=== PATIENT | female | born 1950 | race Caucasian/White ===

== ENCOUNTER 2018-01-23 18:02 | Emergency (ER) | payer BC ==
[2018-01-23 18:14] VITALS: BP 150/69
--- NOTE | 2018-01-23 19:02 | UC ---
Respiratory Complaint HPI - HPI Summary HPI Summary: 67 yo female has felt out of sorts the past day or two recently traveled from [place] felt marked fatigue shakey anxious and dyspneic briefly yesterday feel weak and dizzy DM type I - History of Current Complaint Chief Complaint: UCGeneralIllness Stated Complaint: COUGH Time Seen by Provider: 01/23/18 18:24 Hx Obtained From: Patient Onset/Duration: Gradual Onset, Lasting Days Timing: Constant Severity Initially: Mild Severity Currently: Moderate Pain Intensity: 0 Pain Scale Used: 0-10 Numeric Aggravating Factors: Nothing Associated Signs And Symptoms: Positive: Dyspnea - sllight yesterday - Allergies/Home Medications Allergies/Adverse Reactions: Allergies Allergy/AdvReac Type Severity Reaction Status Date / Time acetaminophen [From Vicodin] Allergy Altered Verified 01/23/18 18:15 Mental Status hydrocodone [From Vicodin] Allergy Altered Verified 01/23/18 18:15 Mental Status morphine Allergy Hives Verified 01/23/18 18:15 Home Medications: Home Medications Escitalopram (NF) [Lexapro 10 mg (NF)] 10 mg PO DAILY 01/23/18 [History Confirmed 01/23/18] PMH/Surg Hx/FS Hx/Imm Hx Endocrine History: Diabetes - Surgical History Surgical History: Yes Surgery Procedure, Year, and Place: FEMUR FX RIGHT LEG, 2010, [facility]. TODD CARPAL TUNELL, ,. L3-4 LAMINECTOMY, [facility]. TUBAL LIGATION, - Family History Known Family History: Positive: Hypertension - Social History Alcohol Use: Occasionally Substance Use Type: None Smoking Status (MU): Never Smoked Tobacco Review of Systems Constitutional: Fatigue Skin: Negative Eyes: Negative ENT: Negative Respiratory: Shortness Of Breath Cardiovascular: Negative Gastrointestinal: Negative Genitourinary: Negative Motor: Negative Neurovascular: Negative Musculoskeletal: Negative Neurological: Negative Psychological: Anxious Is Patient Immunocompromised?: No All Other Systems Reviewed And Are Negative: Yes Physical Exam Triage Information Reviewed: Yes Appearance: Well-Appearing, No Pain Distress, Well-Nourished Vital Signs: Initial Vital Signs Temp 98.8 F 01/23/18 18:08 Pulse 61 01/23/18 18:08 Resp 18 01/23/18 18:08 BP 150/69 01/23/18 18:08 Pulse Ox 100 01/23/18 18:08 Eyes: Positive: Conjunctiva Clear ENT: Positive: Hearing grossly normal. Negative: Nasal congestion, Nasal drainage, Trismus, Muffled voice, Hoarse voice Neck: Positive: Supple, Nontender Respiratory: Positive: Lungs clear, Normal breath sounds, No respiratory distress, No accessory muscle use Cardiovascular: Positive: RRR, No Murmur Musculoskeletal: Positive: ROM Intact, No Edema Neurological: Positive: Alert Psychological Exam: Normal Skin Exam: Normal UC Diagnostic Evaluation - Laboratory O2 Sat by Pulse Oximetry: 100 - normal/not hypoxic - Radiology Xray Interpretation: Positive (See Comments) - IMPRESSION: NODULAR LEFT UPPER LOBE INFILTRATE RECOMMEND A CT OF THE CHEST WITH CONTRAST Radiology Interpretation Completed By: Radiologist - EKG Cardiac Rate: Bradycardia Cardiac Rhythm: Sinus: Normal ST Segment: Non-Specific - unchange from 09/12/15 Respiratory Course/Dx - Differential Dx/Diagnosis Provider Diagnoses: nodular left upper lobe infiltrate. fatigue Discharge - Sign-Out/Discharge Documenting (check all that apply): Discharge/Admit/Transfer - Discharge Plan Condition: Stable Disposition: HOME Prescriptions: Amoxicillin/Clavulanate TAB* [Augmentin TAB 875*] 875 mg PO BID #14 tab Patient Education Materials: Pneumonia (ED), Fatigue (ED) Referrals: Blair Prado MD [Primary Care Provider] - As Soon As Possible Additional Instructions: On chest xray you have a nodular infiltrate in your left upper lobe of the lung The radiologist has suggested a CT scan of your chest with intravenous contrast to better see the area This can be ordered by your MD We will treat you for a possible pneumonia blood work is pending to ER for new or worsening symptoms - Billing Disposition and Condition Condition: STABLE Disposition: Home
--- NOTE | 2018-01-23 19:54 | RAD ---
INDICATION: Fatigue transient dyspnea. COMPARISON: Comparison is made with prior chest x-ray studies from March 21, 2015 and November 25, 2011. TECHNIQUE: Dual-energy PA and lateral views of the chest were obtained. FINDINGS: The heart is within normal limits in size. Mediastinal and hilar contours appear within normal limits. There is a nodular infiltrate which projects in the left upper lobe. This appears slightly more prominent than on prior studies. Recommend a CT of the chest with contrast for further evaluation. The results of this exam were discussed with the referring clinician. IMPRESSION: NODULAR LEFT UPPER LOBE INFILTRATE RECOMMEND A CT OF THE CHEST WITH CONTRAST FOR FURTHER EVALUATION.
[2018-01-23] MEDS ORDERED: Amoxicillin/Clavulanate TAB* 875 MG PO ONE (20:01)
[2018-01-24 11:31] LABS: ABS Basophils 0.1 10^3/ul (0-0.2); ABS Eosinophils 0.2 10^3/ul (0-0.6); ABS Lymphocytes 2.6 10^3/ul (1.0-4.8); ABS Monocytes 0.5 10^3/ul (0-0.8); ABS Neutrophils 4.4 10^3/ul (1.5-7.7); ABS Nucleated RBC 0 10^3/ul; Eosinophil % 2.5 % (0-6); Hematocrit 36 % (35-47); Lymphocyte % 33.6 % (25-47); Mean Corpuscular HGB Conc 34 g/dl (31-36); Mean Corpuscular Hemoglobin 31 pg (27-31); Mean Corpuscular Volume 92 fL (80-97); Mean Platelet Volume 10.4 um3 (7.4-10.4); Nucleated Red Blood Cells % 0.2; Platelet Count 227 10^3/ul (150-450); Red Cell Distribution Width 13 % (10.5-15); White Blood Count 7.9 10^3/ul (3.5-10.8)
== END 2018-01-23 20:25 | disposition home or self-care (01) ==
LOC: UCEAST 18:02
DX: R91.8 Other nonspecific abnormal finding of lung field (principal); R53.83 Other fatigue; R42 Dizziness and giddiness; E10.9 Type 1 diabetes mellitus without complications; R06.00 Dyspnea, unspecified; Z88.5 Allergy status to narcotic agent
CPT/HCPCS: 36415; 71046; 81003; 85025; 93005; 99212; A9270-GY; G0463

== ENCOUNTER 2018-02-06 13:02 | Emergency (ER) | payer BC ==
[2018-02-06 13:59] LABS: ABS Basophils 0 10^3/ul (0-0.2); ABS Eosinophils 0.1 10^3/ul (0-0.6); ABS Monocytes 0.5 10^3/ul (0-0.8); ABS Neutrophils 4.3 10^3/ul (1.5-7.7); ABS Nucleated RBC 0 10^3/ul; Eosinophil % 1.8 % (0-6); Hematocrit 36 % (35-47); Hemoglobin 12.1 g/dl (12.0-16.0); Lymphocyte % 28.8 % (25-47); Mean Corpuscular HGB Conc 34 g/dl (31-36); Mean Corpuscular Hemoglobin 31 pg (27-31); Mean Corpuscular Volume 91 fL (80-97); Mean Platelet Volume 8.9 um3 (7.4-10.4); Nucleated Red Blood Cells % 0; Platelet Count 227 10^3/ul (150-450); Red Blood Count 3.93 10^6/ul (4.00-5.40); Red Cell Distribution Width 13 % (10.5-15); White Blood Count 7.1 10^3/ul (3.5-10.8)
--- NOTE | 2018-02-06 14:11 | RAD ---
Indication: Post CT-guided LEFT lung biopsy February 04, 2018. Shortness of breath. Syncope. Comparison: February 04, [address] January 23, 2018 chest radiograph. Technique: Upright AP 1347 hours Report: No significant change in LEFT apical mass. Negative for pneumothorax. Grossly clear pleural spaces. The heart, pulmonary vasculature, and mediastinal contours are unremarkable. IMPRESSION: #. No significant change in LEFT apical mass accounting for difference in technique. #. Negative for pneumothorax or other acute pulmonary or cardiac process.
[2018-02-06 14:53] LABS: EGFR Non-African American 62.1 (>60)
[2018-02-06] MEDS ORDERED: Iodixanol* (CONTRAST) 320 MG/ML 100 ML SDV IV ONE (18:13)
--- NOTE | 2018-02-06 19:27 | RAD ---
Indication: Shortness of breath. Contrast: Administered 67.1 ml of VISAPAQUE 320 mg/ml CTA of the chest performed after IV contrast administration. Coronal and sagittal reconstructed images were obtained. Pulmonary arterial tree is well opacified. There are no filling defects present to suggest pulmonary embolus. The aorta demonstrates no evidence of aortic dissection. No aneurysmal dilatation is noted. There is no mediastinal or hilar adenopathy noted. There is a pulmonary lesion in the left lung apex measuring 2.1 cm. No pleural fluid is identified. Dependent changes are noted in the lung bases. The visualized abdominal organs are grossly unremarkable. IMPRESSION: No evidence of pulmonary embolus is noted. Dependent changes are noted in the lung bases. No evidence of aortic dissection is noted. Left upper lobe lung mass is noted.
[2018-02-06] MEDS ORDERED: Acetaminophen TAB* 325 MG PO ONE (19:47)
--- NOTE | 2018-02-06 19:52 | ED ---
Progress - Progress Note Progress Note: I assumed care for Dr. Worthy with the patient pending a CT scan of the chest to rule out pulmonary embolism. CT PE was performed and found to be negative for pulmonary emboli. It was again demonstrating her left upper lobe lung mass. She has pending biopsy results for this. She is otherwise feeling well at this time would like to discharge home. Course/Dx - Course Course Of Treatment: CT pulmonary emboli is negative for PE. - Diagnoses Provider Diagnoses: Syncope and collapse, Mass of upper lobe of left lung, Contusion, knee Discharge - Sign-Out/Discharge Documenting (check all that apply): Discharge/Admit/Transfer - Discharge Plan Condition: Stable Disposition: HOME Patient Education Materials: Syncope (ED), Dyspnea (ED) Referrals: Blair Prado MD [Primary Care Provider] - Additional Instructions: Please follow up with your primary care provider in 2-3 days. RETURN TO THE ED FOR ANY WORSENING SYMPTOMS. - Billing Disposition and Condition Condition: STABLE Disposition: Home
[2018-02-06 20:18] VITALS: BP 110/57
--- NOTE | 2018-02-07 10:13 | ED ---
Paulino Alejandro Angela, scribed for Jose De Jesus Worthy MD on 02/06/18 at 1329 . Syncope/Near Syncope - HPI Summary HPI Summary: This pt is a 67 y/o female presenting to [facility] via EMS for a syncopal episode today. Pt reports she has orthostatic hypertension and normally can feel syncope coming on. She notes it usually comes on after taking a couple of steps. Today pt states she woke up feeling SOB. Denies chest pain. She was in the porch when she stood up and realized she was dizzy, she then held on but passed out. Pt states she hit the chair and floor but denies head strike, neck pain, or injuries from fall. She notes her syncopal episode didn't last very long. Pt then scooted to grab her phone and called 911. Currently pt is still SOB. She currently denies feeling of passing out or feeling faint. Pt had a needle biopsy of left upper lung lobe on 02/04/18. She also had an episode of syncope. POC glucose is 69. - History Of Current Complaint Chief Complaint: EDSyncope Time Seen by Provider: 02/06/18 13:22 Hx Obtained From: Patient Onset/Duration: Sudden Onset, Resolved Timing: Seconds Activity At Onset: Other - while standing up Aggravating Factor(s): Nothing Alleviating Factor(s): Nothing Associated Signs And Symptoms: Dizzy, Shortness Of Breath - Allergies/Home Medications Allergies/Adverse Reactions: Allergies Allergy/AdvReac Type Severity Reaction Status Date / Time morphine Allergy Hives Verified 02/04/18 10:27 hydrocodone [From Vicodin] AdvReac Severe Altered Verified 02/04/18 10:27 Mental Status PMH/Surg Hx/FS Hx/Imm Hx Endocrine/Hematology History: Reports: Hx Diabetes, Hx Thyroid Disease Cardiovascular History: Denies: Hx Hypertension, Other Cardiovascular Problems/Disorders Respiratory History: Denies: Hx Asthma, Hx Chronic Obstructive Pulmonary Disease (COPD) GI History: Denies: Hx Ulcer Musculoskeletal History: Reports: Hx Arthritis - LOW BACK Denies: Hx Rheumatoid Arthritis, Hx Osteoporosis Sensory History: Reports: Hx Cataracts - TODD, Hx Contacts or Glasses - GLASSES Denies: Hx Hearing Aid Opthamlomology History: Reports: Hx Cataracts - TODD, Hx Contacts or Glasses - GLASSES Neurological History: Denies: Other Neuro Impairments/Disorders - Cancer History Cancer Type, Location and Year: Postural hypotension Hx Chemotherapy: No Hx Radiation Therapy: No - Surgical History Surgery Procedure, Year, and Place: FEMUR FX RIGHT LEG, 2010, [facility]. TODD CARPAL TUNELL, ,. L3-4 LAMINECTOMY, [facility]. TUBAL LIGATION, Hx Anesthesia Reactions: No Infectious Disease History: No Infectious Disease History: Denies: Hx Hepatitis, Hx Human Immunodeficiency Virus (HIV), History Other Infectious Disease, Traveled Outside the [place] in Last 30 Days - Family History Known Family History: Positive: Hypertension - Social History Alcohol Use: Weekly Substance Use Type: Reports: None Hx Tobacco Use: No Smoking Status (MU): Never Smoked Tobacco Review of Systems Negative: Fever Negative: Chest Pain Positive: Shortness Of Breath Neurological: Other - POS: dizziness, now resolved Positive: Syncope All Other Systems Reviewed And Are Negative: Yes Physical Exam - Summary Physical Exam Summary: Appearance: The patient is well-nourished in no acute distress and in no acute pain. Skin: The skin is warm and dry and skin color reflects adequate perfusion. HEENT: The head is normocephalic and atraumatic. The pupils are equal and reactive. The conjunctivae are clear and without drainage. Nares are patent and without drainage. Mouth reveals moist mucous membranes and the throat is without erythema and exudate. The external ears are intact. The ear canals are patent and without drainage. The tympanic membranes are intact. Neck: the neck is supple with full range of motion and non-tender. There are no carotid bruits. There is no neck vein distension. Respiratory: Chest is non-tender. Lungs are clear to auscultation and breath sounds are symmetrical and equal. Cardiovascular: Heart is regular rate and rhythm. There is no murmur or rub auscultated. There is no peripheral edema and pulses are symmetrical and equal. Abdomen: The abdomen is soft and non-tender. There are normal bowel sounds heard in all four quadrants and there is no organomegaly palpated. Musculoskeletal: There is no back tenderness noted. Extremities are non-tender with full range of motion. There is good capillary refill. There is no peripheral edema or calf tenderness elicited. Neurological: Patient is alert and oriented to person, place and time. The patient has symmetrical motor strength in all four extremities. Cranial nerves are grossly intact. Deep tendon reflexes are symmetrical and equal in all four extremities. Psychiatric: The patient has an appropriate affect and does not exhibit any anxiety or depression. Triage Information Reviewed: Yes Vital Signs On Initial Exam: Initial Vitals Temp Pulse Resp BP Pulse Ox 98.5 F 69 21 163/81 98 02/06/18 13:14 02/06/18 13:14 02/06/18 13:14 02/06/18 13:14 02/06/18 13:14 Vital Signs Reviewed: Yes Diagnostics - Vital Signs Vital Signs Temp Pulse Resp BP Pulse Ox 02/06/18 13:14 98.5 F 69 21 163/81 98 - Laboratory Lab Results: Lab Results 02/06/18 02/06/18 02/06/18 Range/Units 13:21 13:50 13:50 WBC 7.1 (3.5-10.8) 10^3/ul RBC 3.93 L (4.00-5.40) 10^6/ul Hgb 12.1 (12.0-16.0) g/dl Hct 36 (35-47) % MCV 91 (80-97) fL MCH 31 (27-31) pg MCHC 34 (31-36) g/dl RDW 13 (10.5-15) % Plt Count 227 (150-450) 10^3/ul MPV 8.9 (7.4-10.4) um3 Neut % (Auto) 61.3 (38-83) % Lymph % (Auto) 28.8 (25-47) % Union % (Auto) 7.4 H (0-7) % Eos % (Auto) 1.8 (0-6) % Baso % (Auto) 0.7 (0-2) % Absolute Neuts (auto) 4.3 (1.5-7.7) 10^3/ul Absolute Lymphs (auto) 2.0 (1.0-4.8) 10^3/ul Absolute Monos (auto) 0.5 (0-0.8) 10^3/ul Absolute Eos (auto) 0.1 (0-0.6) 10^3/ul Absolute Basos (auto) 0 (0-0.2) 10^3/ul Absolute Nucleated RBC 0 10^3/ul Nucleated RBC % 0 D-Dimer, Quantitative (Less Than 230) ng/mL Sodium 134 L (135-145) mmol/L Potassium 4.1 (3.5-5.0) mmol/L Chloride 102 (101-111) mmol/L Carbon Dioxide 24 (22-32) mmol/L Anion Gap 8 (2-11) mmol/L BUN 21 (6-24) mg/dL Creatinine 0.90 (0.51-0.95) mg/dL Est GFR ( Amer) 75.1 (>60) Est GFR (Non-Af Amer) 62.1 (>60) BUN/Creatinine Ratio 23.3 H (8-20) Glucose 86 (70-100) mg/dL POC Glucose (mg/dL) 69 L (70-100) mg/dL Lactic Acid (0.5-2.0) mmol/L Calcium 9.8 (8.6-10.3) mg/dL Total Bilirubin 0.40 (0.2-1.0) mg/dL AST 25 (13-39) U/L ALT 23 (7-52) U/L Alkaline Phosphatase 92 (34-104) U/L Troponin I 0.00 (<0.04) ng/mL Total Protein 6.9 (6.4-8.9) g/dL Albumin 4.3 (3.2-5.2) g/dL Globulin 2.6 (2-4) g/dL Albumin/Globulin Ratio 1.7 (1-3) 02/06/18 02/06/18 02/06/18 Range/Units 13:50 14:08 18:09 WBC (3.5-10.8) 10^3/ul RBC (4.00-5.40) 10^6/ul Hgb (12.0-16.0) g/dl Hct (35-47) % MCV (80-97) fL MCH (27-31) pg MCHC (31-36) g/dl RDW (10.5-15) % Plt Count (150-450) 10^3/ul MPV (7.4-10.4) um3 Neut % (Auto) (38-83) % Lymph % (Auto) (25-47) % Union % (Auto) (0-7) % Eos % (Auto) (0-6) % Baso % (Auto) (0-2) % Absolute Neuts (auto) (1.5-7.7) 10^3/ul Absolute Lymphs (auto) (1.0-4.8) 10^3/ul Absolute Monos (auto) (0-0.8) 10^3/ul Absolute Eos (auto) (0-0.6) 10^3/ul Absolute Basos (auto) (0-0.2) 10^3/ul Absolute Nucleated RBC 10^3/ul Nucleated RBC % D-Dimer, Quantitative > 1050 H (Less Than 230) ng/mL Sodium (135-145) mmol/L Potassium (3.5-5.0) mmol/L Chloride (101-111) mmol/L Carbon Dioxide (22-32) mmol/L Anion Gap (2-11) mmol/L BUN (6-24) mg/dL Creatinine (0.51-0.95) mg/dL Est GFR ( Amer) (>60) Est GFR (Non-Af Amer) (>60) BUN/Creatinine Ratio (8-20) Glucose (70-100) mg/dL POC Glucose (mg/dL) 85 (70-100) mg/dL Lactic Acid 1.6 (0.5-2.0) mmol/L Calcium (8.6-10.3) mg/dL Total Bilirubin (0.2-1.0) mg/dL AST (13-39) U/L ALT (7-52) U/L Alkaline Phosphatase (34-104) U/L Troponin I (<0.04) ng/mL Total Protein (6.4-8.9) g/dL Albumin (3.2-5.2) g/dL Globulin (2-4) g/dL Albumin/Globulin Ratio (1-3) Result Diagrams: 02/06/18 13:50 02/06/18 13:50 Lab Statement: Any lab studies that have been ordered have been reviewed, and results considered in the medical decision making process. - Radiology Chest XR Xray Interpretation: No Acute Changes - IMPRESSION: 1. No significant change in LEFT apical mass accounting for difference in technique. 2. Negative for pneumothorax or other acute pulmonary or cardiac process. Dr. Worthy has reviewed this radiology report. Radiology Interpretation Completed By: Radiologist - CT CTA chest/thorax CT Interpretation Completed By: Radiologist - pending official radiology report. - EKG 13:33 Cardiac Rate: NL - at 65 bpm EKG Rhythm: Sinus Rhythm Course/Dx Course Of Treatment: Ms Giraldo presented to the emergency department after a syncopal episode. She was not very concerned about the syncopal episode as she says she has orthostatic hypotension and often feels as though she is going to faint after she gets up from a seated position. She has never actually fainted that she was getting up from a seated position today. She is more concerned that when she got up this morning she felt mildly short of breath and this has continued. It is worse with exertion. There is no chest pain associated. She was kept on a monitor and noted to have no ectopy. Her labs are within normal limits except for an elevated d-dimer. In the context of a lung mass, shortness of breath and an elevated d-dimer a CTA is mandated. She is in CT now and I expect will be discharged if the CT is negative for PE. - Diagnoses Provider Diagnoses: Syncope and collapse, Mass of upper lobe of left lung, Contusion, knee Discharge - Sign-Out/Discharge Documenting (check all that apply): Sign-Out Patient Signing out patient TO: Ramses Yip - pending dispo, awaiting CTA Chest - Discharge Plan Condition: Stable Patient Education Materials: Syncope (ED), Dyspnea (ED) Referrals: Blair Prado MD [Primary Care Provider] - Additional Instructions: Please follow up with your primary care provider in 2-3 days. RETURN TO THE ED FOR ANY WORSENING SYMPTOMS. - Billing Disposition and Condition Condition: STABLE The documentation as recorded by the Paulino henry Angela accurately reflects the service I personally performed and the decisions made by me, Jose De Jesus Worthy MD.
== END 2018-02-06 20:10 | disposition home or self-care (01) ==
LOC: ED 13:02
DX: R55 Syncope and collapse (principal); R91.8 Other nonspecific abnormal finding of lung field; S80.00XA Contusion of unspecified knee, initial encounter; W19.XXXA Unspecified fall, initial encounter; Y92.9 Unspecified place or not applicable; Z88.5 Allergy status to narcotic agent
CPT/HCPCS: 36415; 71045; 71275; 80053; 83605; 84484; 85025; 85379; 93005; 99284; A9270-GY; Q9967

== ENCOUNTER → 2018-02-28 09:58 | Day surgery (SDC) | payer BC ==
[~2018-02-28 09:58] MED LIST: Acetaminophen TAB* 325 MG PO PRN; Benzonatate CAP* 100 MG PO PRN; Buffered Lidocaine 0.9% SYRIN* 5 ML/SYR SYRINGE INTRADERM ONE; D5W 1/2 NS 1000 ML BAG* 1,000 ML IV SCH; Dextrose 50% Syringe 50 ML* 25 GM/50 ML SYRINGE ONE; HYDROmorphone INJ* 0.5 MG/0.5 ML SYRINGE IV PRN; Insulin REGULAR(*) 1 UNITS UNIT ONE; Insulin REGULAR(*) 1 UNITS UNIT SUBCUT ONE; Levalbuterol 1.25MG/0.5ML NEB ONE; Midazolam* 1 MG/ML 2 ML VIAL (2 MG) ONE; Naloxone* 0.4 MG/ML 1 ML VIAL IV PRN; Ondansetron INJ* 2 MG/ML VIAL IV PRN; PROCHLORPERAZINE INJ 5 MG/ML 2 ML VIAL IV PRN; Propofol* 10 MG/ML 20 ML BTL IV PUSH ONE; Rocuronium* 10 MG/ML VIAL ONE; Sodium Citrate/Citric Acid* 15 ML UDC ONE; Sodium Citrate/Citric Acid* 15 ML UDC PO ONE; fentaNYL* 50 MCG/ML 2 ML VIAL (100 MCG VIAL) IV PRN; fentaNYL* 50 MCG/ML 2 ML VIAL (100 MCG VIAL) ONE; oxyCODONE TAB* 5 MG TAB PO PRN; oxyCODONE/Acetamin 5/325 MG* TAB PO PRN
[2018-02-28 16:33] VITALS: BP 166/73
--- NOTE | 2018-03-01 04:12 | PRO ---
BRONCHOSCOPY REPORT: DATE OF PROCEDURE: 02/28/18 - [facility] PROCEDURE PERFORMED: Bronchoscopy with endobronchial ultrasound-guided fine needle aspiration from station 7, L4, L12 and L15 lymph nodes. ANESTHESIA: General anesthesia. ANESTHESIOLOGIST: Dr. Celina Odell. DESCRIPTION OF PROCEDURE: Informed consent was obtained from the patient prior to the procedure after all the risks and benefits were thoroughly explained. The patient recently had CT-guided biopsy of lung nodule and was diagnosed with lung cancer. EBUS was scheduled for staging. The patient was intubated with size 8.5 endotracheal tube. A flexible Olympus bronchoscope was inserted through ET tube for airway inspection. No endobronchial lesions were noted. Thin secretions were noted and were suctioned out. EBUS bronchoscope was then inserted. R4 lymph node was enlarged at 0.3 cm and was therefore could not biopsied. R10 lymph node was scanned, measured 0.3 cm and was not sampled. Station 7 lymph node was measuring 5 mm and was sampled with 3 passes. Rapid on -site evaluation revealed lymphatic tissue with the third pass. No malignant cells were noted. L4 was then accessed with 1 pass, lymphatic tissue seen, no abnormal cells were noted. L12 was then accessed with 3 passes, rapid on-site evaluation revealed lymphatic tissue on the third pass. No malignant cells were noted. L15 was then sampled with 2 passes. No abnormal cells were noted, lymphatic tissue noted. The patient subsequently was extubated. The patient tolerated the procedure well. The patient had coughing post bronchoscopy, which resolved with Xopenex and Tessalon Perles. Rest of the specimen was placed in CytoLyt. [id number]/[facility] #: [id number] [facility]
== END | disposition home or self-care (01) ==
LOC: OR 09:58
PROVIDERS: ATTEND Internal Medicine
DX: C34.12 Malignant neoplasm of upper lobe, left bronchus or lung (principal); E10.319 Type 1 diabetes mellitus with unspecified diabetic retinopathy without macular edema; Z79.4 Long term (current) use of insulin; Z96.41 Presence of insulin pump (external) (internal); R53.83 Other fatigue; Z86.79 Personal history of other diseases of the circulatory system; F41.9 Anxiety disorder, unspecified; E03.9 Hypothyroidism, unspecified; R05 Cough; J30.89 Other allergic rhinitis
CPT/HCPCS: 88172; 88173; 88177; 88305; A9270-GY; J2250; J2704; J3010

== ENCOUNTER 2018-04-05 20:18 | Emergency (ER) | payer BC ==
--- NOTE | 2018-04-05 21:40 | ED ---
Syncope/Near Syncope - HPI Summary HPI Summary: This patient is a 67 year old F presenting to [facility] accompanied by her with a chief complaint of syncope since 19:00 today. Patient reports that she was taking her daily 1 mile walk when she had 2 syncopal episodes. The patient was with her on her walk and he was able to catch her when she passed out. Patient reports nausea prior to the syncopal episode. Patients reports that she was lucid and coherent the whole time. Patient s/p left upper lobectomy that was performed 10 days ago at [facility]. The patient rates the pain 4/10 in severity. Symptoms aggravated by walking. Symptoms alleviated by nothing. Patient reports coughing fits this afternoon, pain in right hip, and ankle edema since her surgery. Patient also notes left upper chest pain that began today. The patient reports that since the surgery she has been taking Gabapentin and Tylenol 3x daily Patient reports that she has been losing a lot of fluid from her drainage site and has been changing the bandaging 4x per day. Patient has hx of orthostatic hypertension and DM type 1 with insulin pump. - History Of Current Complaint Chief Complaint: EDSyncope Time Seen by Provider: 04/05/18 20:55 Hx Obtained From: Patient Onset/Duration: Sudden Onset, Lasting Minutes, Resolved Timing: Seconds Context: Witnessed, Loss Of Consciousness Activity At Onset: Exertion - walking Associated Head Trauma: No Aggravating Factor(s): Exertion Alleviating Factor(s): Nothing Associated Signs And Symptoms: Chest Pain - left upper chest, Other - nausea - Allergies/Home Medications Allergies/Adverse Reactions: Allergies Allergy/AdvReac Type Severity Reaction Status Date / Time hydrocodone [From Vicodin] Allergy Severe Altered Verified 04/05/18 21:35 Mental Status morphine Allergy Intermediate Hives Verified 04/05/18 21:35 PMH/Surg Hx/FS Hx/Imm Hx Endocrine/Hematology History: Reports: Hx Diabetes - Type 1, on Insulin pump, Hx Thyroid Disease - Hypothyroid Cardiovascular History: Denies: Hx Hypertension - low blood pressure, on med to increase bp, recent syncope with collapse, Hx Pacemaker/ICD, Other Cardiovascular Problems/Disorders Respiratory History: Denies: Hx Asthma, Hx Chronic Obstructive Pulmonary Disease (COPD), Hx Sleep Apnea, Other Respiratory Problems/Disorders GI History: Denies: Hx Ulcer, Other GI Disorders History: Reports: Other Problems/Disorders - History of UTIs once in awhile Denies: Hx Renal Disease Musculoskeletal History: Reports: Hx Arthritis - LOW BACK, Hips, Right hand, Other Musculoskeletal History - Dupytren's nodules in right hand-start of per pt Denies: Hx Rheumatoid Arthritis, Hx Osteoporosis Sensory History: Reports: Hx Cataracts - Bilateral removed, Hx Contacts or Glasses - Glasses, Hx Hearing Aid - DOESN'T WEAR ALL THE TIME-Bilateral Denies: Hx Glaucoma Opthamlomology History: Reports: Hx Cataracts - Bilateral removed, Hx Contacts or Glasses - Glasses Denies: Hx Glaucoma Neurological History: Denies: Other Neuro Impairments/Disorders Psychiatric History: Reports: Hx Anxiety - on medication, Hx Depression - on medication Denies: Hx Panic Disorder - Cancer History Cancer Type, Location and Year: 2 WEEKS AGO - NEWLY DX - LUNG CANCER Hx Chemotherapy: No Hx Radiation Therapy: No - Surgical History Surgery Procedure, Year, and Place: 01/24/2018 - Left Upper Lobectomy at [facility]. 01/2018 - LUNG BIOPSY. FEMUR FX RIGHT LEG, 2010, [facility]. TODD CARPAL TUNELL, ,. L4-5 LAMINECTOMY, [facility]. TUBAL LIGATION, . CATARACT, VITRECTOMY & LASER Hx Anesthesia Reactions: No Infectious Disease History: Yes Infectious Disease History: Denies: Hx Hepatitis, Hx Human Immunodeficiency Virus (HIV), History Other Infectious Disease, Traveled Outside the in Last 30 Days - Family History Known Family History: Positive: Hypertension - Social History Alcohol Use: Weekly Alcohol Amount: 1-2 per week Substance Use Type: Reports: None Hx Tobacco Use: No Smoking Status (MU): Never Smoked Tobacco Review of Systems Negative: Fever Positive: Chest Pain - left upper chest pain Positive: Cough Positive: Arthralgia - right hip pain Positive: Syncope - 2 episodes at 19:00 All Other Systems Reviewed And Are Negative: Yes Physical Exam - Summary Physical Exam Summary: Appearance: Well-appearing, Well-nourished, lying in bed comfortably Skin: Warm, dry, no obvious rash Eyes: sclera anicteric, no conjunctival pallor ENT: mucous membranes moist, pharynx appears normal Neck: Supple, nontender Respiratory: Clear to auscultation, no signs of respiratory distress Cardiovascular: Normal S1, S2. No murmurs. Normal distal pulses in tibial and radial bilaterally. Abdomen: Soft, nontender, normal active bowel sounds present Musculoskeletal: Normal, Strength/ROM Intact Neurological: A&Ox3, awake and alert, mentation is normal, speech is fluent and appropriate Psychiatric: affect is normal, does not appear anxious or depressed Triage Information Reviewed: Yes Vital Signs On Initial Exam: Initial Vitals Temp Pulse Resp BP Pulse Ox 97.8 F 72 20 129/62 97 04/05/18 20:28 04/05/18 20:28 04/05/18 20:28 04/05/18 20:28 04/05/18 20:28 Vital Signs Reviewed: Yes Diagnostics - Vital Signs Vital Signs Temp Pulse Resp BP Pulse Ox 04/05/18 20:28 97.8 F 72 20 129/62 97 - Laboratory Result Diagrams: 04/05/18 22:02 04/05/18 22:02 Lab Statement: Any lab studies that have been ordered have been reviewed, and results considered in the medical decision making process. Course/Dx - Diagnoses Provider Diagnoses: Vasovagal syncope Discharge - Sign-Out/Discharge Documenting (check all that apply): Patient Departure - Discharge Plan Condition: Good Disposition: HOME Patient Education Materials: Syncope (ED) Referrals: Blair Prado MD [Primary Care Provider] - - Billing Disposition and Condition Condition: GOOD Disposition: Home - Attestation Statements Document Initiated by Scribe: Yes Documenting Scribe: Margaret Jimenez Provider For Whom Alessandra is Documenting (Include Credential): Jose De Jesus Ely MD Scribe Attestation: Margaret Alejandro, scribed for Jose De Jesus Ely MD on 04/06/18 at 0237. Scribe Documentation Reviewed: Yes Provider Attestation: The documentation as recorded by the scribe, Margaret Jimenez accurately reflects the service I personally performed and the decisions made by me, Jose De Jesus Ely MD
[2018-04-05] MEDS ORDERED: NS 0.9% 1000 ML* 1,000 ML IV ONE (21:42)
[2018-04-05 22:14] LABS: ABS Basophils 0.1 10^3/ul (0-0.2); ABS Eosinophils 0.1 10^3/ul (0-0.6); ABS Neutrophils 14.9 10^3/ul (1.5-7.7); ABS Nucleated RBC 0 10^3/ul; Eosinophil % 0.7 % (0-6); Hematocrit 29 % (35-47); Hemoglobin 9.9 g/dl (12.0-16.0); Lymphocyte % 5.9 % (25-47); Mean Corpuscular HGB Conc 34 g/dl (31-36); Mean Corpuscular Hemoglobin 31 pg (27-31); Mean Corpuscular Volume 92 fL (80-97); Mean Platelet Volume 7.6 um3 (7.4-10.4); Nucleated Red Blood Cells % 0; Platelet Count 385 10^3/ul (150-450); Red Blood Count 3.17 10^6/ul (4.00-5.40); Red Cell Distribution Width 14 % (10.5-15); White Blood Count 17.2 10^3/ul (3.5-10.8)
[2018-04-05 22:23] LABS: EGFR Non-African American 58.3 (>60)
[2018-04-05 23:51] VITALS: BP 143/56
== END 2018-04-05 23:49 | disposition home or self-care (01) ==
LOC: ED 20:18
DX: R55 Syncope and collapse (principal); R07.9 Chest pain, unspecified; R11.0 Nausea
CPT/HCPCS: 36415; 80048; 85025; 99282

== ENCOUNTER 2021-02-11 15:11 | Inpatient (IN) ==
[2021-02-11] MEDS ORDERED: NS 0.9% 1000 ml BAG 1,000 ML IV ONE (15:20)
[2021-02-11 15:53] LABS: ABS Lymphocytes 1.1 10^3/ul (1.0-4.8); ABS Monocytes 0.7 10^3/ul (0-0.8); ABS Neutrophils 7.2 10^3/ul (1.5-7.7); Hematocrit 31 % (35-47); Hemoglobin 10.4 g/dL (12.0-16.0); Lymphocyte % 12.6 %; Mean Corpuscular HGB Conc 34 g/dL (31-36); Mean Corpuscular Hemoglobin 33 pg (27-31); Mean Corpuscular Volume 97 fL (80-97); Mean Platelet Volume 8.9 fL (7.4-10.4); Platelet Count 209 10^3/uL (150-450); Red Blood Count 3.15 10^6 /uL (3.70-4.87); Red Cell Distribution Width 13 % (10-15); White Blood Count 9.1 10^3/uL (3.5-10.8)
[2021-02-11 16:07] LABS: Albumin 3.5 g/dL (3.2-5.2); Albumin/Globulin Ratio 1.6 (1-3); C Reactive Protein 105.96 mg/L (<8.01); Calcium 8.9 mg/dL (8.6-10.3); EGFR African American 28.8 (>60); EGFR Non-African American 23.8 (>60); Globulin 2.2 g/dL (2-4); Potassium 4.7 mmol/L (3.5-5.0); Total Bilirubin 0.6 mg/dL (0.2-1.0); Total Protein 5.7 g/dL (6.4-8.9)
[2021-02-11] MEDS ORDERED: Insulin Infusion 100unit/100mL 100 UNIT/100 ML BAG IV ONE ×2 (16:13→21:00)
[2021-02-11 16:24] LABS: Venous Bicarbonate HCO3 16.5 mmol/L (24-28)
[2021-02-11] MEDS ORDERED: LORazepam 2 mg VIAL 1 ml IM ONE (16:25)
[2021-02-11] MEDS ORDERED: diPHENhydraMINE IV 50 MG/ML 1 ml VIAL (BENADRYL) IM ONE (16:25)
[2021-02-11] MEDS ORDERED: Haloperidol 5 mg/ml SDV IV/IM 5 MG/ML AMP IM ONE (16:25)
[2021-02-11] MEDS ORDERED: Lactated Ringers 1000 ml BAG 1,000 ML IV ONE (16:52)
[2021-02-11 17:05] LABS: Urine Appearance Clear; Urine Bilirubin Negative (Negative); Urine Blood Negative (Negative); Urine Color Yellow; Urine Glucose 3+(>=500 mg/dL) (Negative); Urine Ketones 1+ (Negative); Urine Nitrite Negative (Negative); Urine Protein Negative (Negative); Urine Specific Gravity 1.013 (1.002-1.030); Urine Urobilinogen Negative (Negative)
[2021-02-11 17:27] LABS: Troponin I 0.02 ng/mL (<0.03)
[2021-02-11 17:40] LABS: TSH Ultra Thyroid Stim Horm 1.9 mcIU/mL (0.34-5.60)
[2021-02-11 17:53] LABS: Phosphorus 3.8 mg/dL (2.5-5.0)
[2021-02-11 18:25] LABS: Glucose Confirmatory 493 mg/dL (70-100)
[2021-02-11] MEDS ORDERED: Lactated Ringers 1000 ml BAG 1,000 ML IV SCH (20:00)
[2021-02-11 20:18] LABS: Anion Gap 7 mmol/L (2-11); Blood Urea Nitrogen 38 mg/dL (6-24); CO2 Carbon Dioxide 21 mmol/L (22-32); Calcium 8.1 mg/dL (8.6-10.3); Chloride 95 mmol/L (101-111); EGFR African American 34.3 (>60); EGFR Non-African American 28.4 (>60); Glucose 415 mg/dL (70-100); Glucose Confirmatory 415 mg/dL (70-100); Potassium 4.1 mmol/L (3.5-5.0); Sodium 123 mmol/L (135-145)
[2021-02-11] MEDS: Heparin 5000 UNITS/ML 1 mL VIAL SUBCUT SCH (22:02)
[2021-02-11] MEDS ORDERED: D5W 1/2 NS 1000 ml BAG 1,000 ML IV SCH (23:45)
[2021-02-12 00:51] LABS: EGFR African American 39.2 (>60); EGFR Non-African American 32.4 (>60)
[2021-02-12 01:13] LABS: Potassium 4.1 mmol/L (3.5-5.0)
[2021-02-12 04:26] LABS: ABS Lymphocytes 1.5 10^3/ul (1.0-4.8); ABS Monocytes 0.7 10^3/ul (0-0.8); ABS Neutrophils 4.5 10^3/ul (1.5-7.7); Eosinophil % 0.4 %; Hematocrit 26 % (35-47); Hemoglobin 8.8 g/dL (12.0-16.0); Lymphocyte % 22.1 %; Mean Corpuscular HGB Conc 34 g/dL (31-36); Mean Corpuscular Hemoglobin 33 pg (27-31); Mean Corpuscular Volume 95 fL (80-97); Mean Platelet Volume 8.2 fL (7.4-10.4); Platelet Count 216 10^3/uL (150-450); Red Blood Count 2.72 10^6 /uL (3.70-4.87); Red Cell Distribution Width 13 % (10-15); White Blood Count 6.7 10^3/uL (3.5-10.8)
[2021-02-12 04:41] LABS: Calcium 7.8 mg/dL (8.6-10.3); EGFR Non-African American 36.4 (>60); Potassium 4.1 mmol/L (3.5-5.0)
[2021-02-12] MEDS ORDERED: Dextrose 50% Syringe 50 ml 25 GM/50 ML SYRINGE IV PUSH PRN ×3 (04:50→10:58)
[2021-02-12] MEDS: Heparin 5000 UNITS/ML 1 mL VIAL SUBCUT SCH ×3 (05:19→21:57)
[2021-02-12 05:39] LABS: Magnesium 1.8 mg/dL (1.9-2.7)
[2021-02-12 05:44] LABS: Phosphorus 2.7 mg/dL (2.5-5.0)
[2021-02-12] MEDS ORDERED: Insulin GLARGINE 100 un/ml 10 ml VIAL SUBCUT SCH (07:00)
[2021-02-12] MEDS ORDERED: Magnesium Sulfate 2 gm BAG 2 GM/50 ML BAG IVPB ONE ×2 (07:00→14:36)
[2021-02-12 08:02] LABS: Calcium 7.8 mg/dL (8.6-10.3); EGFR African American 46.2 (>60); EGFR Non-African American 38.2 (>60); Potassium 4.3 mmol/L (3.5-5.0)
[2021-02-12 12:59] LABS: EGFR Non-African American 45.5 (>60); Potassium 3.5 mmol/L (3.5-5.0)
[2021-02-12] MEDS ORDERED: Potassium Chlor 20 meq TAB.ER PO ONE (13:30)
[2021-02-12 13:56] LABS: Magnesium 1.9 mg/dL (1.9-2.7); Phosphorus 1.6 mg/dL (2.5-5.0)
[2021-02-12] MEDS: Lactated Ringers 1000 ml BAG 1,000 ML IV SCH (14:14)
[2021-02-12] MEDS ORDERED: Potassium Phosphate IV 15 MMOLE in NS 0.9% 250 ml 250 ML IVPB ONE (14:36)
[2021-02-12 17:37] LABS: Calcium 8.3 mg/dL (8.6-10.3); EGFR African American 51.9 (>60); EGFR Non-African American 42.9 (>60); Potassium 4.8 mmol/L (3.5-5.0)
[2021-02-12 20:57] LABS: Calcium 8.3 mg/dL (8.6-10.3); EGFR Non-African American 42.1 (>60)
[2021-02-12] MEDS: Insulin GLARGINE 100 un/ml 10 ml VIAL SUBCUT SCH (21:58)
[2021-02-13] MEDS: Lactated Ringers 1000 ml BAG 1,000 ML IV SCH (00:21)
[2021-02-13] MEDS: Heparin 5000 UNITS/ML 1 mL VIAL SUBCUT SCH ×3 (06:18→21:26)
[2021-02-13 10:05] LABS: ABS Lymphocytes 0.6 10^3/ul (1.0-4.8); ABS Monocytes 0.3 10^3/ul (0-0.8); ABS Neutrophils 3.7 10^3/ul (1.5-7.7); Eosinophil % 0.2 %; Hematocrit 29 % (35-47); Hemoglobin 9.7 g/dL (12.0-16.0); Lymphocyte % 12.4 %; Mean Corpuscular HGB Conc 34 g/dL (31-36); Mean Corpuscular Hemoglobin 33 pg (27-31); Mean Corpuscular Volume 96 fL (80-97); Platelet Count 199 10^3/uL (150-450); Red Blood Count 2.98 10^6 /uL (3.70-4.87); Red Cell Distribution Width 13 % (10-15); White Blood Count 4.7 10^3/uL (3.5-10.8)
[2021-02-13 10:17] LABS: Calcium 8.5 mg/dL (8.6-10.3); Magnesium 1.9 mg/dL (1.9-2.7); Potassium 4.5 mmol/L (3.5-5.0)
[2021-02-13 10:23] LABS: EGFR African American 66.7 (>60); EGFR Non-African American 55.1 (>60)
[2021-02-13] MEDS ORDERED: Sodium Phosphate IV 15 MMOLE in NS 0.9% 250 ml 250 ML IVPB ONE (11:10)
[2021-02-13] MEDS: Insulin GLARGINE 100 un/ml 10 ml VIAL SUBCUT SCH (21:26)
[2021-02-14] MEDS ORDERED: Ondansetron 4 mg VIAL 2 MG/ML 2 ml VIAL IV PRN (03:39)
[2021-02-14] MEDS: Heparin 5000 UNITS/ML 1 mL VIAL SUBCUT SCH ×3 (06:04→21:31)
[2021-02-14 06:30] LABS: ABS Lymphocytes 0.9 10^3/ul (1.0-4.8); ABS Monocytes 0.4 10^3/ul (0-0.8); ABS Neutrophils 3.9 10^3/ul (1.5-7.7); Hematocrit 27 % (35-47); Hemoglobin 9.2 g/dL (12.0-16.0); Lymphocyte % 17.2 %; Mean Corpuscular HGB Conc 34 g/dL (31-36); Mean Corpuscular Hemoglobin 33 pg (27-31); Mean Corpuscular Volume 95 fL (80-97); Mean Platelet Volume 8.4 fL (7.4-10.4); Platelet Count 170 10^3/uL (150-450); Red Blood Count 2.82 10^6 /uL (3.70-4.87); Red Cell Distribution Width 13 % (10-15); White Blood Count 5.3 10^3/uL (3.5-10.8)
[2021-02-14 06:51] LABS: Albumin/Globulin Ratio 1.3 (1-3); Calcium 8.1 mg/dL (8.6-10.3); Direct Bilirubin 0.7 mg/dL (0.03-0.18); EGFR African American 84.1 (>60); EGFR Non-African American 69.5 (>60); Globulin 2.4 g/dL (2-4); Indirect Bilirubin 0.4 mg/dL (0.3-1.0); Magnesium 1.6 mg/dL (1.9-2.7); Potassium 4.2 mmol/L (3.5-5.0); Total Bilirubin 1.1 mg/dL (0.2-1.0); Total Protein 5.4 g/dL (6.4-8.9)
[2021-02-14] MEDS ORDERED: Metoclopramide 5 MG/ML VIAL (10 mg) IV PRN (08:10)
[2021-02-14] MEDS ORDERED: Magnesium Sulfate 2 gm BAG 2 GM/50 ML BAG IVPB ONE (11:19)
[2021-02-14 11:42] LABS: % Iron Saturation 12 % (15-55); Iron 23 ug/dL (50-212); Total Iron Binding Capacity 197 mcg/dL (250-450); Transferrin 141 mg/dL (203-362); Unsaturated Iron Binding < 182 ug/dL
[2021-02-14 13:42] LABS: Hepatitis B Surface Antigen Nonreactive (Nonreactive)
[2021-02-14 13:47] LABS: Hepatitis A Ab IgM Negative (Negative)
[2021-02-14 13:48] LABS: Hepatitis B Core IgM Nonreactive (Nonreactive)
[2021-02-14 13:59] LABS: Hepatitis C Antibody Negative (Negative)
[2021-02-14 17:07] LABS: Ferritin > 1500.0 ng/mL (11-307)
[2021-02-14] MEDS: Insulin GLARGINE 100 un/ml 10 ml VIAL SUBCUT SCH (21:33)
[2021-02-14 22:16] LABS: C Reactive Protein 130.26 mg/L (<8.01)
[2021-02-15 05:33] LABS: ABS Lymphocytes 1.2 10^3/ul (1.0-4.8); ABS Monocytes 0.5 10^3/ul (0-0.8); ABS Neutrophils 4.2 10^3/ul (1.5-7.7); Eosinophil % 0.1 %; Hematocrit 27 % (35-47); Hemoglobin 9.5 g/dL (12.0-16.0); Lymphocyte % 20.2 %; Mean Corpuscular HGB Conc 35 g/dL (31-36); Mean Corpuscular Hemoglobin 34 pg (27-31); Mean Corpuscular Volume 96 fL (80-97); Mean Platelet Volume 8.5 fL (7.4-10.4); Nucleated Red Blood Cells % 0.1; Platelet Count 165 10^3/uL (150-450); Red Blood Count 2.84 10^6 /uL (3.70-4.87); Red Cell Distribution Width 13 % (10-15); White Blood Count 5.9 10^3/uL (3.5-10.8)
[2021-02-15] MEDS: Heparin 5000 UNITS/ML 1 mL VIAL SUBCUT SCH ×3 (05:37→21:54)
[2021-02-15 05:46] LABS: INR 1.06 (0.86-1.15)
[2021-02-15 05:59] LABS: Albumin/Globulin Ratio 1.4 (1-3); Calcium 7.9 mg/dL (8.6-10.3); Direct Bilirubin 0.5 mg/dL (0.03-0.18); EGFR African American 93.3 (>60); EGFR Non-African American 77.1 (>60); Globulin 2.2 g/dL (2-4); Indirect Bilirubin 0.4 mg/dL (0.3-1.0); Magnesium 1.8 mg/dL (1.9-2.7); Potassium 4.3 mmol/L (3.5-5.0); Total Bilirubin 0.9 mg/dL (0.2-1.0); Total Protein 5.2 g/dL (6.4-8.9)
[2021-02-15] MEDS ORDERED: Furosemide 20 mg/2 ml IV VIAL IV ONE ×2 (07:00→19:11)
[2021-02-15] MEDS ORDERED: Vancomycin per Pharmacy 1 EA NOTE FOLLOW UP PRN (10:19)
[2021-02-15] MEDS ORDERED: Vancomycin 1,250 MG in NS 0.9% 250 ml 250 ML IVPB ONE (10:30)
[2021-02-15] MEDS ORDERED: Cefepime 2 GM in Dextrose 2 GM/50 ML BAG IV SCH (11:00)
[2021-02-15] MEDS: Insulin GLARGINE 100 un/ml 10 ml VIAL SUBCUT SCH (22:15)
[2021-02-15] MEDS: Cefepime 2 GM in Dextrose 2 GM/50 ML BAG IV SCH (22:58)
[2021-02-16] MEDS: Cefepime 2 GM in Dextrose 2 GM/50 ML BAG IV SCH ×3 (05:44→22:39)
[2021-02-16] MEDS: Heparin 5000 UNITS/ML 1 mL VIAL SUBCUT SCH ×3 (05:52→21:18)
[2021-02-16] MEDS ORDERED: Vancomycin 750 MG in NS 0.9% 250 ML IVPB SCH (06:00)
[2021-02-16 07:15] LABS: Hematocrit 26 % (35-47); Hemoglobin 9.2 g/dL (12.0-16.0); Mean Corpuscular HGB Conc 35 g/dL (31-36); Mean Corpuscular Hemoglobin 33 pg (27-31); Mean Corpuscular Volume 95 fL (80-97); Mean Platelet Volume 9.2 fL (7.4-10.4); Platelet Count 185 10^3/uL (150-450); Red Blood Count 2.75 10^6 /uL (3.70-4.87); Red Cell Distribution Width 13 % (10-15); White Blood Count 5.5 10^3/uL (3.5-10.8)
[2021-02-16 07:19] LABS: ABS Lymphocytes 1.7 10^3/ul (1.0-4.8); ABS Monocytes 0.4 10^3/ul (0-0.8); ABS Neutrophils 3.3 10^3/ul (1.5-7.7); Eosinophil % 0.5 %; Lymphocyte % 31.7 %
[2021-02-16 07:26] LABS: Albumin 2.7 g/dL (3.2-5.2); Calcium 7.5 mg/dL (8.6-10.3); Direct Bilirubin 0.5 mg/dL (0.03-0.18); EGFR African American 67.5 (>60); EGFR Non-African American 55.8 (>60); Globulin 2.7 g/dL (2-4); Indirect Bilirubin 0.7 mg/dL (0.3-1.0); Magnesium 1.5 mg/dL (1.9-2.7); Potassium 4.4 mmol/L (3.5-5.0); Total Bilirubin 1.2 mg/dL (0.2-1.0); Total Protein 5.4 g/dL (6.4-8.9)
[2021-02-16 07:41] LABS: RBC Morphology Normal (Normal); Toxic Granulation 1+
[2021-02-16] MEDS ORDERED: Magnesium Sulfate 2 gm BAG 2 GM/50 ML BAG IVPB ONE (07:43)
[2021-02-16 08:49] LABS: Glucose Confirmatory 456 mg/dL (70-100)
[2021-02-16 12:49] LABS: Glucose Confirmatory 455 mg/dL (70-100)
[2021-02-16] MEDS ORDERED: Dextrose 50% Syringe 50 ml 25 GM/50 ML SYRINGE IV PUSH PRN (13:15)
[2021-02-17] MEDS ORDERED: Vancomycin Trough Check NOTE FOLLOW UP ONE (05:30)
[2021-02-17 05:35] LABS: Hematocrit 25 % (35-47); Hemoglobin 8.7 g/dL (12.0-16.0); Mean Corpuscular HGB Conc 35 g/dL (31-36); Mean Corpuscular Hemoglobin 33 pg (27-31); Mean Corpuscular Volume 94 fL (80-97); Mean Platelet Volume 8.9 fL (7.4-10.4); Platelet Count 229 10^3/uL (150-450); Red Blood Count 2.64 10^6 /uL (3.70-4.87); Red Cell Distribution Width 13 % (10-15); White Blood Count 6.6 10^3/uL (3.5-10.8)
[2021-02-17 05:48] LABS: EGFR African American 60.3 (>60); EGFR Non-African American 49.9 (>60)
[2021-02-17 05:51] LABS: Albumin 2.7 g/dL (3.2-5.2); Albumin/Globulin Ratio 1.1 (1-3); Calcium 7.4 mg/dL (8.6-10.3); Direct Bilirubin 0.3 mg/dL (0.03-0.18); EGFR African American 59.7 (>60); EGFR Non-African American 49.3 (>60); Globulin 2.5 g/dL (2-4); Indirect Bilirubin 0.5 mg/dL (0.3-1.0); Magnesium 1.9 mg/dL (1.9-2.7); Potassium 4.9 mmol/L (3.5-5.0); Total Bilirubin 0.8 mg/dL (0.2-1.0); Total Protein 5.2 g/dL (6.4-8.9)
[2021-02-17 05:57] LABS: Vancomycin Trough 7.4 mcg/mL
[2021-02-17] MEDS: Cefepime 2 GM in Dextrose 2 GM/50 ML BAG IV SCH ×2 (06:01→17:59)
[2021-02-17] MEDS: Heparin 5000 UNITS/ML 1 mL VIAL SUBCUT SCH ×3 (06:01→20:48)
[2021-02-17 06:28] LABS: ABS Basophils 0.1 10^3/ul (0-0.2); ABS Eosinophils 0.1 10^3/ul (0-0.6); ABS Lymphocytes 2.4 10^3/ul (1.0-4.8); ABS Monocytes 0.5 10^3/ul (0-0.8); ABS Neutrophils 3.6 10^3/ul (1.5-7.7); Eosinophil % 0.8 %; Lymphocyte % 35.9 %; RBC Morphology Normal (Normal)
[2021-02-17 08:19] LABS: Glucose Confirmatory 417 mg/dL (70-100)
[2021-02-17] MEDS ORDERED: Albuterol/Ipratropium NEB.SOL (2.5/0.5 MG) 3 ML NEB.SOLN INH PRN (11:09)
[2021-02-17] MEDS: guaiFENesin 100 mg/5 ml LIQ unit dose cup PO PRN (13:28)
[2021-02-18] MEDS: Cefepime 2 GM in Dextrose 2 GM/50 ML BAG IV SCH ×2 (05:28→17:42)
[2021-02-18] MEDS: Heparin 5000 UNITS/ML 1 mL VIAL SUBCUT SCH ×3 (05:28→20:35)
[2021-02-18 06:29] LABS: Hematocrit 25 % (35-47); Hemoglobin 8.6 g/dL (12.0-16.0); Mean Corpuscular HGB Conc 35 g/dL (31-36); Mean Corpuscular Hemoglobin 33 pg (27-31); Mean Corpuscular Volume 95 fL (80-97); Mean Platelet Volume 7.9 fL (7.4-10.4); Platelet Count 306 10^3/uL (150-450); Red Blood Count 2.62 10^6 /uL (3.70-4.87); Red Cell Distribution Width 13 % (10-15); White Blood Count 7.1 10^3/uL (3.5-10.8)
[2021-02-18 06:53] LABS: Albumin 2.9 g/dL (3.2-5.2); Albumin/Globulin Ratio 1.2 (1-3); Calcium 7.7 mg/dL (8.6-10.3); Direct Bilirubin 0.2 mg/dL (0.03-0.18); EGFR African American 69.1 (>60); EGFR Non-African American 57.1 (>60); Globulin 2.5 g/dL (2-4); Indirect Bilirubin 0.5 mg/dL (0.3-1.0); Magnesium 1.9 mg/dL (1.9-2.7); Potassium 4.2 mmol/L (3.5-5.0); Total Bilirubin 0.7 mg/dL (0.2-1.0); Total Protein 5.4 g/dL (6.4-8.9)
[2021-02-18] MEDS: guaiFENesin 100 mg/5 ml LIQ unit dose cup PO PRN (07:49)
[2021-02-18 08:04] LABS: ABS Eosinophils 0.1 10^3/ul (0-0.6); ABS Lymphocytes 3.1 10^3/ul (1.0-4.8); ABS Monocytes 0.6 10^3/ul (0-0.8); ABS Neutrophils 3.2 10^3/ul (1.5-7.7); Eosinophil % 1.5 %
[2021-02-19] MEDS: Cefepime 2 GM in Dextrose 2 GM/50 ML BAG IV SCH ×2 (06:13→17:14)
[2021-02-19] MEDS: Heparin 5000 UNITS/ML 1 mL VIAL SUBCUT SCH ×3 (06:13→19:59)
[2021-02-19 06:15] LABS: Hematocrit 25 % (35-47); Hemoglobin 8.5 g/dL (12.0-16.0); Mean Corpuscular HGB Conc 34 g/dL (31-36); Mean Corpuscular Hemoglobin 33 pg (27-31); Mean Corpuscular Volume 95 fL (80-97); Mean Platelet Volume 7.8 fL (7.4-10.4); Platelet Count 332 10^3/uL (150-450); Red Blood Count 2.63 10^6 /uL (3.70-4.87); Red Cell Distribution Width 14 % (10-15); White Blood Count 6.2 10^3/uL (3.5-10.8)
[2021-02-19 06:29] LABS: ABS Basophils 0.1 10^3/ul (0-0.2); ABS Eosinophils 0.1 10^3/ul (0-0.6); ABS Lymphocytes 2.7 10^3/ul (1.0-4.8); ABS Monocytes 0.6 10^3/ul (0-0.8); ABS Neutrophils 2.8 10^3/ul (1.5-7.7); Eosinophil % 1.4 %; Lymphocyte % 43.5 %
[2021-02-19 06:38] LABS: Albumin/Globulin Ratio 1.2 (1-3); Direct Bilirubin 0.2 mg/dL (0.03-0.18); EGFR African American 66.7 (>60); EGFR Non-African American 55.1 (>60); Globulin 2.5 g/dL (2-4); Indirect Bilirubin 0.5 mg/dL (0.3-1.0); Magnesium 1.9 mg/dL (1.9-2.7); Potassium 4.2 mmol/L (3.5-5.0); Total Bilirubin 0.7 mg/dL (0.2-1.0); Total Protein 5.5 g/dL (6.4-8.9)
[2021-02-19] MEDS: guaiFENesin 100 mg/5 ml LIQ unit dose cup PO PRN (08:43)
[2021-02-20] MEDS: Heparin 5000 UNITS/ML 1 mL VIAL SUBCUT SCH ×3 (05:24→20:08)
[2021-02-20] MEDS: Cefepime 2 GM in Dextrose 2 GM/50 ML BAG IV SCH ×2 (05:24→17:17)
[2021-02-20 07:20] LABS: Hematocrit 24 % (35-47); Hemoglobin 8.5 g/dL (12.0-16.0); Mean Corpuscular HGB Conc 35 g/dL (31-36); Mean Corpuscular Hemoglobin 33 pg (27-31); Mean Corpuscular Volume 94 fL (80-97); Mean Platelet Volume 7.8 fL (7.4-10.4); Platelet Count 350 10^3/uL (150-450); Red Blood Count 2.59 10^6 /uL (3.70-4.87); Red Cell Distribution Width 14 % (10-15); White Blood Count 5.2 10^3/uL (3.5-10.8)
[2021-02-20 07:37] LABS: Albumin 2.9 g/dL (3.2-5.2); Albumin/Globulin Ratio 1.2 (1-3); Calcium 7.9 mg/dL (8.6-10.3); EGFR Non-African American 57.8 (>60); Globulin 2.4 g/dL (2-4); Potassium 4.6 mmol/L (3.5-5.0); Total Bilirubin 0.6 mg/dL (0.2-1.0); Total Protein 5.3 g/dL (6.4-8.9)
[2021-02-20 08:00] LABS: ABS Basophils 0.1 10^3/ul (0-0.2); ABS Eosinophils 0.1 10^3/ul (0-0.6); ABS Lymphocytes 1.6 10^3/ul (1.0-4.8); ABS Monocytes 0.5 10^3/ul (0-0.8); Eosinophil % 1.4 %; Lymphocyte % 30.5 %; Nucleated Red Blood Cells % 0.1
[2021-02-20] MEDS: guaiFENesin 100 mg/5 ml LIQ unit dose cup PO PRN (15:57)
[2021-02-20 17:37] LABS: Anaplasma phagocytophilum Positive (Negative); B. miyamotoi PCR, B Negative (Negative); Babesia divergens/MO-1 Negative (Negative); Babesia ducani Negative (Negative); Ehrlichia chaffeensis Negative (Negative); Ehrlichia ewingii/canis Negative (Negative); Ehrlichia muris eauclairensis Negative (Negative)
[2021-02-21] MEDS: guaiFENesin 100 mg/5 ml LIQ unit dose cup PO PRN ×2 (02:22→09:39)
[2021-02-21] MEDS: Heparin 5000 UNITS/ML 1 mL VIAL SUBCUT SCH (06:19)
[2021-02-21] MEDS: Cefepime 2 GM in Dextrose 2 GM/50 ML BAG IV SCH (06:19)
[2021-02-21 06:48] LABS: Calcium 8.3 mg/dL (8.6-10.3); EGFR African American 73.5 (>60); EGFR Non-African American 60.8 (>60); Potassium 4.5 mmol/L (3.5-5.0)
[2021-02-21 12:45] VITALS: BP 129/59
[2021-02-21] MEDS ORDERED: cefTRIAXone 1 gm/50 mL NS BAG 1 GM/50 ML BAG IVPB SCH (18:30)
== END 2021-02-21 14:35 | disposition home health service (06) | DRG 637 ==
LOC: ED 15:11 → ICU 16:50 → MED 02-12 21:02
PROVIDERS: ADMIT Hospitalist; ATTEND Internal Medicine

== ENCOUNTER 2023-12-05 15:29 | Inpatient (IN) ==
[2023-12-05] MEDS: NS 0.9% 1000 ml BAG 1,000 ML IV ONE ×2 (16:57→19:33)
[2023-12-05 17:12] LABS: Venous Bicarbonate HCO3 16.8 mmol/L (24-28)
[2023-12-05 17:13] LABS: ABS Lymphocytes 1.5 10^3/uL (1.0-4.8); ABS Monocytes 0.7 10^3/uL (0.0-0.9); ABS Neutrophils 7.3 10^3/uL (1.5-7.6); Eosinophil % 0.1 %; Hematocrit 33.7 % (35-45); Hemoglobin 11.4 g/dL (11.5-14.3); Lymphocyte % 15.5 %; Mean Corpuscular Hemoglobin 33.1 pg (27-33); Mean Corpuscular Hgb Conc 33.7 g/dL (31-36); Mean Corpuscular Volume 98.1 fL (80-97); Mean Platelet Volume 8.6 fL (7.5-11.2); Platelet Count 231 10^3/uL (150-450); Red Blood Count 3.43 10^6/uL (3.63-4.92); White Blood Count 9.5 10^3/uL (3.8-11.8)
[2023-12-05 17:56] LABS: ALT 16 U/L (7-52); Albumin/Globulin Ratio 2.2 (1-3); Alkaline Phosphatase 50 U/L (35-149); Anion Gap 15 mmol/L (2-16); Blood Urea Nitrogen 49 mg/dL (6-24); CO2 Carbon Dioxide 18 mmol/L (22-32); Calcium 9.2 mg/dL (8.6-10.3); Chloride 89 mmol/L (101-111); Globulin 1.8 g/dL (2-4); Magnesium 1.8 mg/dL (1.9-2.7); Sodium 122 mmol/L (135-145); Total Bilirubin 0.7 mg/dL (0.2-1.0); Total Protein 5.8 g/dL (6.4-8.9); eGFR CKD-EPI 31.1 (>60)
[2023-12-05 17:58] LABS: Glucose 671 mg/dL (70-100)
[2023-12-05 18:10] LABS: ABS Basophils 0.1 10^3/uL (0.0-0.1); ABS Lymphocytes 1.7 10^3/uL (1.0-4.8); ABS Monocytes 0.8 10^3/uL (0.0-0.9); ABS Neutrophils 8.1 10^3/uL (1.5-7.6); Eosinophil % 0.1 %; Hematocrit 36.3 % (35-45); Hemoglobin 12.1 g/dL (11.5-14.3); Lymphocyte % 15.6 %; Mean Corpuscular Hemoglobin 32.7 pg (27-33); Mean Corpuscular Hgb Conc 33.3 g/dL (31-36); Mean Corpuscular Volume 98.2 fL (80-97); Mean Platelet Volume 8.7 fL (7.5-11.2); Platelet Count 264 10^3/uL (150-450); Red Cell Distribution Width 12.8 % (12-17); White Blood Count 10.7 10^3/uL (3.8-11.8)
[2023-12-05 18:23] LABS: Urine Appearance Clear; Urine Bilirubin Negative (Negative); Urine Blood Negative (Negative); Urine Color Light-Yellow; Urine Glucose 4+ (>=1000 mg/dL) (Negative); Urine Ketones 2+ (Negative); Urine Nitrite Negative (Negative); Urine Protein Negative (Negative); Urine Specific Gravity 1.019 (1.002-1.030); Urine Urobilinogen Negative (Negative)
[2023-12-05 19:13] LABS: Albumin 4.3 g/dL (3.2-5.2); Albumin/Globulin Ratio 2.3 (1-3); Calcium 9.1 mg/dL (8.6-10.3); Creatinine, Serum 1.72 mg/dL (0.51-0.95); Globulin 1.9 g/dL (2-4); Magnesium 1.8 mg/dL (1.9-2.7); Phosphorus 4.3 mg/dL (2.5-5.0); Potassium 5.1 mmol/L (3.5-5.0); Total Bilirubin 0.8 mg/dL (0.2-1.0); Total Protein 6.2 g/dL (6.4-8.9); eGFR CKD-EPI 30.6 (>60)
[2023-12-05 19:29] LABS: TSH Ultra Thyroid Stim Horm 1.67 mcIU/mL (0.34-5.60)
[2023-12-05 19:37] LABS: Potassium Redraw 4.9 mmol/L (3.5-5.0)
[2023-12-05 19:59] LABS: High Sensitivity Troponin 1 Hr 734 pg/mL (<15)
[2023-12-05] MEDS ORDERED: Dextrose 50% Syringe 50 ml 25 GM/50 ML SYRINGE IV PUSH PRN (20:06)
[2023-12-05] MEDS: Insulin Infusion 100unit/100mL 100 UNIT/100 ML BAG IV SCH (20:52)
[2023-12-05] MEDS: Heparin DRIP 25,000 UNITS BAG 25,000 UNITS/250 ML BAG IV SCH (21:46)
[2023-12-05] MEDS: Heparin 5000 UNITS/ML 1 mL VIAL IV SCH (21:46)
[2023-12-05] MEDS: NORMOSOL-R pH 7.4 1000 mL BAG 1,000 ML IV SCH (21:47)
[2023-12-05 22:09] LABS: Activated Partial Thrombo Time 28.2 seconds (26.0-38.0); INR 1.05 (0.83-1.13)
[2023-12-05 22:55] LABS: Calcium 8.7 mg/dL (8.6-10.3); Creatinine, Serum 1.54 mg/dL (0.51-0.95); Magnesium 1.6 mg/dL (1.9-2.7); Phosphorus 3.3 mg/dL (2.5-5.0)
[2023-12-05] MEDS: Magnesium Sulf 4 GM/100 ML IV 4,000 MG/100 ML BAG IVPB ONE (23:13)
[2023-12-05 23:54] LABS: Glucose Confirmatory 462 mg/dL (70-100)
[2023-12-06 00:33] LABS: Glucose Confirmatory 410 mg/dL (70-100)
[2023-12-06 03:00] LABS: Calcium 8.1 mg/dL (8.6-10.3); Creatinine, Serum 1.52 mg/dL (0.51-0.95); Magnesium 3.1 mg/dL (1.9-2.7); Phosphorus 2.4 mg/dL (2.5-5.0); Potassium 3.6 mmol/L (3.5-5.0); eGFR CKD-EPI 35.5 (>60)
[2023-12-06] MEDS: NORMOSOL-R pH 7.4 1000 mL BAG 1,000 ML IV SCH (03:18)
[2023-12-06] MEDS: NS 0.9% w/ 20 Meq KCL 1000 ml 1,000 ML IV SCH (03:19)
[2023-12-06] MEDS: Potassium Phosphate IV 15 MMOL in NS 0.9% 250 ml 250 ML IVPB ONE (03:23)
[2023-12-06] MEDS ORDERED: NS 0.9% w/ 20 Meq KCL 1000 ml 1,000 ML IV SCH (04:00)
[2023-12-06] MEDS: Insulin GLARGINE 100 un/ml 10 ml VIAL SUBCUT ONE (04:15)
[2023-12-06 05:38] LABS: ABS Basophils 0.1 10^3/uL (0.0-0.1); ABS Eosinophils 0.1 10^3/uL (0.0-0.5); ABS Lymphocytes 2.9 10^3/uL (1.0-4.8); ABS Monocytes 1.1 10^3/uL (0.0-0.9); ABS Neutrophils 7.1 10^3/uL (1.5-7.6); ABS Nucleated RBC 0.01 10^3/ul; Eosinophil % 1.2 %; Hematocrit 30.5 % (35-45); Hemoglobin 10.6 g/dL (11.5-14.3); Lymphocyte % 25.8 %; Mean Corpuscular Hemoglobin 32.8 pg (27-33); Mean Corpuscular Hgb Conc 34.8 g/dL (31-36); Mean Corpuscular Volume 94.2 fL (80-97); Mean Platelet Volume 8.2 fL (7.5-11.2); Nucleated Red Blood Cells % 0.1 %/100WBC (0.0-0.8); Platelet Count 241 10^3/uL (150-450); Red Blood Count 3.24 10^6/uL (3.63-4.92); Red Cell Distribution Width 12.4 % (12-17); White Blood Count 11.4 10^3/uL (3.8-11.8)
[2023-12-06] MEDS ORDERED: Dextrose 50% Syringe 50 ml 25 GM/50 ML SYRINGE IV PUSH PRN (05:45)
[2023-12-06 06:10] LABS: Calcium 8.2 mg/dL (8.6-10.3); Creatinine, Serum 1.37 mg/dL (0.51-0.95); Magnesium 2.7 mg/dL (1.9-2.7); Phosphorus 3.2 mg/dL (2.5-5.0); Potassium 3.8 mmol/L (3.5-5.0); eGFR CKD-EPI 40.3 (>60)
[2023-12-06 06:11] LABS: Cholesterol 142 mg/dL; HDL Cholesterol 54.5 mg/dL; LDL Cholesterol 77 mg/dL; Triglycerides 55 mg/dL
[2023-12-06 06:36] LABS: Folate > 20.00 ng/mL (5.90-24.80)
[2023-12-06 06:37] LABS: Vitamin B12 599 pg/mL (180-914)
[2023-12-06] MEDS: DULoxetine DR 60 mg CAP PO SCH (08:30)
[2023-12-06] MEDS: Aspirin EC 81 mg TAB.EC (enteric coated) PO SCH (09:28)
[2023-12-06 10:30] LABS: Calcium 8.6 mg/dL (8.6-10.3); Creatinine, Serum 1.25 mg/dL (0.51-0.95); Magnesium 2.4 mg/dL (1.9-2.7); Phosphorus 4.1 mg/dL (2.5-5.0); Potassium 3.8 mmol/L (3.5-5.0); eGFR CKD-EPI 44.9 (>60)
[2023-12-06] MEDS ORDERED: Scopolamine 1 mg/72hr PATCH TRANSDERM SCH (15:00)
[2023-12-06 17:58] LABS: Calcium 8.6 mg/dL (8.6-10.3); Creatinine, Serum 1.26 mg/dL (0.51-0.95); Magnesium 2.2 mg/dL (1.9-2.7); Phosphorus 3.1 mg/dL (2.5-5.0); Potassium 4.5 mmol/L (3.5-5.0); eGFR CKD-EPI 44.5 (>60)
[2023-12-06 23:11] LABS: Calcium 8.5 mg/dL (8.6-10.3); Creatinine, Serum 1.22 mg/dL (0.51-0.95); Magnesium 2.1 mg/dL (1.9-2.7); Phosphorus 2.8 mg/dL (2.5-5.0); Potassium 4.4 mmol/L (3.5-5.0); eGFR CKD-EPI 46.3 (>60)
[2023-12-07 07:45] LABS: ABS Eosinophils 0.2 10^3/uL (0.0-0.5); ABS Lymphocytes 2.1 10^3/uL (1.0-4.8); ABS Monocytes 0.6 10^3/uL (0.0-0.9); ABS Neutrophils 5.5 10^3/uL (1.5-7.6); Eosinophil % 2.1 %; Hemoglobin 10.8 g/dL (11.5-14.3); Lymphocyte % 24.9 %; Mean Corpuscular Hemoglobin 32.8 pg (27-33); Mean Corpuscular Hgb Conc 34.8 g/dL (31-36); Mean Corpuscular Volume 94.3 fL (80-97); Mean Platelet Volume 8.5 fL (7.5-11.2); Platelet Count 215 10^3/uL (150-450); Red Blood Count 3.29 10^6/uL (3.63-4.92); Red Cell Distribution Width 12.7 % (12-17); White Blood Count 8.4 10^3/uL (3.8-11.8)
[2023-12-07 08:54] LABS: Calcium 8.4 mg/dL (8.6-10.3); Creatinine, Serum 1.07 mg/dL (0.51-0.95); Magnesium 1.8 mg/dL (1.9-2.7); eGFR CKD-EPI 54.2 (>60)
[2023-12-07] MEDS: Insulin GLARGINE 100 un/ml 10 ml VIAL SUBCUT SCH (08:54)
[2023-12-07] MEDS: Magnesium Sulfate IV 1GM/100ML 1 GM/100 ML BAG IV ONE (14:12)
[2023-12-08 04:34] LABS: Calcium 8.1 mg/dL (8.6-10.3); Creatinine, Serum 1.02 mg/dL (0.51-0.95); Magnesium 1.7 mg/dL (1.9-2.7); Potassium 4.6 mmol/L (3.5-5.0); eGFR CKD-EPI 57.4 (>60)
[2023-12-08 12:13] LABS: Glucose Confirmatory 427 mg/dL (70-100)
[2023-12-08] MEDS: Enoxaparin 40 MG/0.4 ML SYR SUBCUT SCH (20:30)
[2023-12-09] MEDS ORDERED: Aminophylline 25 MG/ML VIAL ONE (10:44)
[2023-12-09] MEDS ORDERED: Regadenoson 0.4 MG/5 ML SYRINGE ONE (10:44)
[2023-12-09] MEDS: Dextrose 25% PED SYRINGE 10ml IV ONE (13:29)
[2023-12-09] MEDS: Insulin LISPRO FOR INSULIN PUMP SUBCUT SCH (17:30)
[2023-12-10 09:15] VITALS: BP 110/48
== END 2023-12-10 13:30 | disposition home or self-care (01) | DRG 637 ==
LOC: ED 15:29 → EDHOLD 21:20 → SUATTDRO 21:20 → MED 22:00 → ICU 22:14 → MED 12-06 15:52
PROVIDERS: ADMIT Student in an Organized Health Care Education/Training Program; ATTEND Internal Medicine